=== PATIENT | female | born 1940 | race African-American/Black ===

== ENCOUNTER 2016-11-02 07:30 | Outpatient (RCR) | payer MEDICARE, OTHER ==
[~2016-11-02 07:30] MED LIST: HYDROCHLOROTHIA25 MG PO; LIDODERM PATCH TOP; LIDODERM700 M1 TP; LIPITOR10 MG PO; NEURONTIN300 MG PO; PAMELOR10 MG PO; SAVELLA50 MG PO; TRAZODONE HCL50 MG PO; VICODIN 5-5001 EACH PO; VIT.D3 ORAL; VITAMIN D5000 UNI1 PO; ZANTAC150 MG PO
== END 2016-11-30 | disposition home or self-care (01) ==
LOC: PTY 07:30
DX: S76.101A Unspecified injury of right quadriceps muscle, fascia and tendon, initial encounter (principal); I10 Essential (primary) hypertension; Z91.81 History of falling; M81.0 Age-related osteoporosis without current pathological fracture; Z96.651 Presence of right artificial knee joint
CPT/HCPCS: 97110; 97140; 97162; G0283; G8978; G8979

== ENCOUNTER 2016-12-02 08:10 | Outpatient (RCR) | payer MEDICARE, OTHER | END 2016-12-28 | disposition home or self-care (01) | LOC: PTY 08:10 | DX: S76.101A Unspecified injury of right quadriceps muscle, fascia and tendon, initial encounter (principal); I10 Essential (primary) hypertension; Z91.81 History of falling; M81.0 Age-related osteoporosis without current pathological fracture; Z96.651 Presence of right artificial knee joint | CPT/HCPCS: 97035; 97110; 97140; G0283 ==